=== PATIENT | male | born 1960 | race Asian ===

== ENCOUNTER → 2017-02-21 | Outpatient (CLI) | payer OTHER ==
[2017-02-21 10:31] LABS: ASPARTATE AMINO TRANSFERASE 5 U/L (15-37); BLOOD UREA NITROGEN 17 mg/dL (7-18)
== END | disposition home or self-care (01) ==
LOC: LAB 09:58
PROVIDERS: ATTEND Family Medicine
DX: E78.5 Hyperlipidemia, unspecified (principal); E11.65 Type 2 diabetes mellitus with hyperglycemia; R42 Dizziness and giddiness
CPT/HCPCS: 36415; 80053; 80061; 82043; 83036; 84443

== ENCOUNTER 2017-02-28 09:38 | Emergency (ER) | payer OTHER ==
[~2017-02-28] VITALS: Ht 170.2 cm; Wt 66.2 kg
[2017-02-28] MEDS ORDERED: SODIUM CHLORIDE 0.9% 1,000ML IVBOLUS ONE (10:30)
[2017-02-28 11:25] LABS: ASPARTATE AMINO TRANSFERASE 13 U/L (15-37); BLOOD UREA NITROGEN 18 mg/dL (7-18)
[2017-02-28] MEDS ORDERED: CEFTRIAXONE PMX 1GM/50ML 50 ML IV ONE (11:30)
[2017-02-28] MEDS ORDERED: CEFTRIAXONE 1,000 MG in SODIUM CHLORIDE 0.9% 50 ML IV ONE (11:30)
[2017-02-28] MEDS ORDERED: CEFTRIAXONE PMX 1GM/50ML 50 ML ONE (11:32)
[2017-02-28 11:39] VITALS: BP 111/78
== END 2017-02-28 12:36 | disposition home or self-care (01) ==
LOC: ED 10:52
DX: L03.113 Cellulitis of right upper limb (principal); E11.65 Type 2 diabetes mellitus with hyperglycemia; F17.210 Nicotine dependence, cigarettes, uncomplicated
CPT/HCPCS: 36415; 80053; 85025; 96361; 96365; 99284; J0696; J7030

== ENCOUNTER 2018-07-12 23:46 | Emergency (ER) | payer OTHER ==
[~2018-07-12] VITALS: Ht 170.2 cm; Wt 62.0 kg
[2018-07-12 23:51] VITALS: BP 134/87
[2018-07-12] MEDS ORDERED: SITA1TAB5 PO (23:57)
[2018-07-13] MEDS ORDERED: ALBUTEROL/IPRATROPIUM 2.5MG/0.5MG, 3 ML ONE (00:29)
[2018-07-13] MEDS ORDERED: ALBUTEROL/IPRATROPIUM 2.5MG/0.5MG, 3 ML NPPB ONE (00:30)
== END 2018-07-13 01:44 | disposition home or self-care (01) ==
LOC: ED 23:59
DX: J20.9 Acute bronchitis, unspecified (principal); E11.65 Type 2 diabetes mellitus with hyperglycemia; F17.210 Nicotine dependence, cigarettes, uncomplicated
CPT/HCPCS: 71046; 93005; 94640; 99284

== ENCOUNTER → 2019-10-24 | Outpatient (CLI) | payer OTHER ==
[~2019-10-24] MED LIST: SITA1TAB5 PO
[2019-10-24 07:58] LABS: BASOPHILS # (AUTO) 0.07 x10^3/uL (0-0.1); BASOPHILS % (AUTO) 1 % (0-1); EOSINOPHILS # (AUTO) 0.11 x10^3/uL (0-0.4); EOSINOPHILS % (AUTO) 1 % (1-7); LYMPHOCYTES # (AUTO) 1.64 x10^3/uL (1-3.4); LYMPHOCYTES % (AUTO) 20 % (22-44); MD NO; MEAN CORPUSCULAR HEMOGLOBIN 27.9 pg (27.5-34.5); MEAN CORPUSCULAR HGB CONC 33.6 g/dL (33.2-36.2); MEAN CORPUSCULAR VOLUME 83.1 fL (81-97); MEAN PLATELET VOLUME 7.1 fL (7.4-10.4); MONOCYTES # (AUTO) 0.47 x10^3/uL (0.2-0.8); MONOCYTES % (AUTO) 6 % (2-9); NEUTROPHILS # (AUTO) 6.11 x10^3/uL (1.8-6.8); NEUTROPHILS % (AUTO) 73 % (42-75); PLATELET COUNT 372 x10^3/uL (130-400); RED BLOOD COUNT 5.26 x10^6/uL (4.38-5.82); RED CELL DISTRIBUTION WIDTH 13.5 % (9.4-14.8)
[2019-10-24 08:11] LABS: ALANINE AMINOTRANSFERASE 26 U/L (12-78); ALBUMIN 3.8 g/dL (3.4-5.0); ANION GAP 6 mmol/L (5-15); CALCIUM 8.9 mg/dL (8.5-10.1); CHLORIDE 104 mmol/L (98-107)
[2019-10-24 08:35] LABS: ALKALINE PHOSPHATASE 96 U/L (45-117); BILIRUBIN,TOTAL 0.4 mg/dL (0.2-1.0); CHOL/HDL RATIO 6.4; CHOLESTEROL, TOTAL 204 mg/dL (140-239); CREATININE 1.03 mg/dL (0.7-1.3); FREE T4 (FREE THYROXINE) 1.13 ng/dL (0.76-1.46); HDL CHOL % 16 % (26-37); HDL CHOLESTEROL (DIRECT) 32 mg/dL (40-60); LDL CHOLESTEROL,CALCULATED 150 mg/dL (54-169); LDL/HDL RATIO 4.7 (0.5-3.0); TOTAL PROTEIN 8.4 g/dL (6.4-8.2); TRIGLYCERIDES 109 mg/dL (50-200); VLDL CHOLESTEROL 22 mg/dL (0-25)
== END | disposition home or self-care (01) ==
LOC: LAB 07:45
PROVIDERS: ATTEND Family Medicine
DX: E11.65 Type 2 diabetes mellitus with hyperglycemia (principal); E78.5 Hyperlipidemia, unspecified; E55.9 Vitamin D deficiency, unspecified; D51.3 Other dietary vitamin B12 deficiency anemia; R53.83 Other fatigue
CPT/HCPCS: 36415; 80053; 80061; 82043; 82306; 82570; 82607; 83036; 84439; 84443; 85025

== ENCOUNTER → 2020-02-18 | Outpatient (CLI) | payer OTHER | END | disposition home or self-care (01) | LOC: LAB 07:34 | PROVIDERS: ATTEND Family Medicine | DX: E11.42 Type 2 diabetes mellitus with diabetic polyneuropathy (principal) | CPT/HCPCS: 36415; 82043; 82570; 83036 ==